=== PATIENT | male | born 1985 | race Hispanic/Latino ===

== ENCOUNTER 2017-06-07 00:27 | Emergency (ER) | payer SELFPAY ==
[~2017-06-07] VITALS: Ht 167.6 cm; Wt 83.6 kg
[2017-06-07] MEDS ORDERED: PERCOCET 5/325M1 TAB PO (02:25)
[2017-06-07] MEDS ORDERED: BACTRIM DS1 TAB PO (02:25)
[2017-06-07] MEDS ORDERED: KEFLEX500 MG PO (02:25)
[2017-06-07 02:50] VITALS: BP 126/80
== END 2017-06-07 02:50 | disposition home or self-care (01) | DRG 156 ==
LOC: ED 00:27
PROC: 0H92XZZ Drainage of Right Ear Skin, External Approach (ICD-10-PCS; principal; 2017-06-07)
DX: H60.02 Abscess of left external ear (principal)

== ENCOUNTER 2017-06-08 18:44 | Emergency (ER) | payer SELFPAY ==
[~2017-06-08] VITALS: Ht 167.6 cm; Wt 84.0 kg
[~2017-06-08 18:44] MED LIST: BACTRIM DS1 TAB PO; KEFLEX500 MG PO; PERCOCET 5/325M1 TAB PO
[2017-06-08 19:22] VITALS: BP 117/59
== END 2017-06-08 19:25 | disposition home or self-care (01) | DRG 603 ==
LOC: ED 18:44
DX: L02.811 Cutaneous abscess of head [any part, except face] (principal)

== ENCOUNTER 2019-02-19 01:20 | Emergency (ER) | payer SELFPAY ==
[~2019-02-19] VITALS: Ht 167.6 cm; Wt 78.4 kg
[~2019-02-19 01:20] MED LIST changes: +CIPROFLOXACN500 MG PO; +LOMOTIL2.5 MG PO; +METRONIDAZOL500 MG PO; +ZOFRAN ODT4 MG PO
[2019-02-19] MEDS ORDERED: GENTAMICIN15 ML/BTL OU (02:11)
[2019-02-19] MEDS ORDERED: (None)3.5 GM OU (02:11)
[2019-02-19] MEDS ORDERED: PATANOL0.1 % OU (02:11)
[2019-02-19 02:35] VITALS: BP 133/82
== END 2019-02-19 02:35 | disposition home or self-care (01) | DRG 125 ==
LOC: ED 01:20
DX: H10.33 Unspecified acute conjunctivitis, bilateral (principal); H57.13 Ocular pain, bilateral